=== PATIENT | female | born 1990 | race Caucasian/White ===

== ENCOUNTER → 2023-12-18 16:25 | Outpatient (REF) | payer OTHER, SELFPAY | LOC: PNTC 16:25 | PROVIDERS: ATTENDING PHYSICIAN Obstetrics & Gynecology | DX: Z34.82 Encounter for supervision of other normal pregnancy, second trimester (principal) | CPT/HCPCS: 76805 ==

== ENCOUNTER 2024-05-09 19:31 | Inpatient (IN) | payer OTHER, SELFPAY ==
[2024-05-09 19:43] VITALS: BMI 30.1
[2024-05-09] MEDS: LR 1000 IV (20:00)
[2024-05-09 20:26] LABS: % Basophils 0.3 % (0-2); % Eosinophils 1.5 % (0-6); % Immature Granulocytes 0.6 % (0-0.5); % Lymphocytes 18.1 % (20.5-51.1); % Monocytes 7.2 % (1.7-9.3); % Neutrophils 72.3 % (42.2-75.2); Absolute Eosinophils 0.2 10^3/uL (0-0.7); Absolute Immature Granulocytes 0.1 10^3/uL (0-0.05); Absolute Lymphocytes 1.9 10^3/uL (1.2-3.4); Absolute Monocytes 0.7 10^3/uL (0.1-0.6); Absolute Neutrophils 7.5 10^3/uL (1.4-6.5); Hematocrit 35.8 % (37.0-47.0); Hemoglobin 12.8 g/dL (12.0-16.0); Mean Corp Hgb Conc. 35.8 g/dL (33.0-37.0); Mean Corpuscular Hgb 31.6 pg (27.0-31.0); Mean Corpuscular Volume 88.4 fL (81.0-99.0); Mean Platelet Volume 11.7 fL (7.4-10.4); Nucleated Red Blood Cells % 0 %; Platelet Count 209 10^3/uL (130-400); Red Blood Cell Count 4.05 10^6/uL (4.20-5.40); Red Cell Dist. Width 12.6 % (11.5-14.5); White Blood Cell Count 10.3 10^3/uL (4.8-10.8)
[2024-05-09] MEDS: CYTOTEC 25 MICROGRAM VAG (20:31)
[2024-05-09 22:06] VITALS: BP 124/73
[2024-05-10] MEDS: CYTOTEC 50 MICROGRAM PO ×2 (00:49→05:04)
[2024-05-10] MEDS: PRENATAL PLUS PO (09:26)
[2024-05-10] MEDS: PITOCIN 30 UNITS/NSS 500 ML IV (09:30)
[2024-05-10] MEDS: SUBLIMAZE 100 MCG EPIDURAL (11:08)
[2024-05-10] MEDS: FENTANYL/BUPIVACAINE 100 EPIDURAL (11:08)
[2024-05-10] MEDS: MOTRIN 600 MG PO (20:41)
[2024-05-11] MEDS: TYLENOL 650 MG PO (05:13)
[2024-05-11] MEDS: MOTRIN 600 MG PO ×3 (05:14→20:09)
[2024-05-11 05:23] LABS: Hematocrit 36.6 % (37.0-47.0)
[2024-05-11] MEDS: PRENATAL PLUS 1 TABLET PO (08:25)
[2024-05-12] MEDS: MOTRIN 600 MG PO (07:48)
[2024-05-12] MEDS: PRENATAL PLUS PO (07:50)
[2024-05-14 11:49] LABS: Syphilis/T. pallidum Ab Reflex Negative (Negative)
== END 2024-05-12 11:51 | disposition home or self-care (01) | DRG 807 ==
LOC: LDRP 19:31
PROVIDERS: Obstetrics & Gynecology; ADMITTING PHYSICIAN Obstetrics & Gynecology; FAMILY PHYSICIAN Family Medicine
PROC: 0HQ9XZZ Repair Perineum Skin, External Approach (ICD-10-PCS; 2024-05-10)
PROC: 10E0XZZ Delivery of Products of Conception, External Approach (ICD-10-PCS; 2024-05-10)
PROC: 10907ZC Drainage of Amniotic Fluid, Therapeutic from Products of Conception, Via Natural or Artificial Opening (ICD-10-PCS; 2024-05-10)
PROC: 3E033VJ Introduction of Other Hormone into Peripheral Vein, Percutaneous Approach (ICD-10-PCS; 2024-05-10)
DX: O48.0 Post-term pregnancy (principal); Z37.0 Single live birth; Z3A.41 41 weeks gestation of pregnancy; O99.284 Endocrine, nutritional and metabolic diseases complicating childbirth; E28.2 Polycystic ovarian syndrome; O69.82X0 Labor and delivery complicated by other cord entanglement, without compression, not applicable or unspecified; O70.0 First degree perineal laceration during delivery
CPT/HCPCS: 36415; 85014; 85018; 85025; 86780; 86850; 86900; 86901